=== PATIENT | male | born 1990 | race Hispanic/Latino ===

== ENCOUNTER 2020-08-05 07:54 | Emergency (ER) | payer OTHER ==
--- NOTE | 2020-08-06 07:06 | RAD ---
XR Chest 1 View Portable HISTORY: Cough COMPARISON: None FINDINGS: The heart size normal. The lungs are expanded with a focal density in the right infrahilar lung. Recommend repeating the exam after a course of antibiotics to exclude underlying mass..
== END 2020-08-05 08:40 | disposition left against medical advice (07) ==
LOC: MADERS 07:54
DX: R11.2 Nausea with vomiting, unspecified (principal)
CPT/HCPCS: 71045

== ENCOUNTER 2020-08-11 00:36 | Emergency (ER) | payer OTHER ==
[2020-08-11] MEDS ORDERED: Morphine 2 MG/ML SYRINGE ONE (01:07)
[2020-08-11] MEDS ORDERED: Ketorolac Tromethamine 30 MG/ML VIAL ONE (01:07)
[2020-08-11 01:25] LABS: #Basophils 0.1 thou/uL (0.0-0.2); #Eosinphils 0.2 thou/uL (0.0-0.7); #Lymphocytes 3.7 thou/uL (1.20-3.40); #Monocytes 0.5 thou/uL (0.11-0.59); #Neutrophils 4.8 thou/uL (1.40-6.50); %Basophils 1.5 % (0.0-1.0); %Eosinophils 1.8 % (0.0-10.0); %Lymphocytes 39.5 % (21.0-51.0); %Monocytes 5.7 % (0.0-10.0); %Neutrophils 51.6 % (42.0-75.0); Hemoglobin 16.2 g/dL (14.0-18.0); Mean Corpuscular HGB CONC 34.7 g/dL (32.0-36.0); Mean Corpuscular Hemoglobin 31.6 pg (27.0-31.0); Mean Corpuscular Volume 90.9 fL (78.0-98.0); Mean Platelet Volume 6.4 fL (7.4-10.4); Platelet Count 286 thou/uL (130-400); RBC Distribution Width 11.2 % (11.5-14.5); Red Blood Cell (RBC) Count 5.13 mill/uL (4.70-6.10); White Blood Cell (WBC) Count 9.3 thou/uL (4.8-10.8)
[2020-08-11] MEDS ORDERED: Ketamine 50 MG/ML (10ML VIAL) ONE (01:31)
[2020-08-11 01:36] LABS: ALT (SGPT) 33 U/L (8-55); AST (SGOT) 25 U/L (5-34); Albumin 4.3 g/dL (3.5-5.0); Alkaline Phosphatase 65 U/L (40-110); Anion Gap 19 mmol/L (10-20); BUN (Urea Nitrogen) 13 mg/dL (8.9-20.6); Bilirubin, Total 0.6 mg/dL (0.2-1.2); Calc. Creatinine Clearance 0 mL/min (70-130); Calcium 9.2 mg/dL (7.8-10.44); Carbon Dioxide 18 mmol/L (22-29); Chloride 106 mmol/L (98-107); Estimated GFR-MDRD 75; Globulin 3.7 g/dL (2.4-3.5); Glucose 100 mg/dL (70-105); Lipase 62 U/L (8-78); Potassium 3.9 mmol/L (3.5-5.1); Sodium 139 mmol/L (136-145)
[2020-08-11] MEDS ORDERED: Fentanyl 100 MCG/2 ML VIAL ONE (01:44)
[2020-08-11] MEDS ORDERED: Lorazepam 2 MG/ML VIAL ONE (01:52)
[2020-08-11 02:01] LABS: Cardiac Risk 7.5 (Less than 4.5); Cholesterol 261 mg/dl (< 200 Desired); HDL Cholesterol 35 mg/dL (>60 Neg Risk); Triglycerides 856 mg/dL (Less than 150)
[2020-08-11 02:09] LABS: LDL Cholesterol, Calculated 55 mg/dL
[2020-08-11] MEDS ORDERED: Morphine 4 MG/ML VIAL ONE (03:03)
[2020-08-11] MEDS ORDERED: Prochlorperazine 10 MG/2 ML VIAL ONE (03:04)
[2020-08-11] MEDS ORDERED: Sodium Chloride 0.9% 1,000 ML BAG ONE (08:46)
[2020-08-11] MEDS ORDERED: Iopamidol 370 76% 100 ML VIAL ONE (10:52)
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
== END 2020-08-11 05:12 ==
LOC: MADERS 00:36
DX: K85.90 Acute pancreatitis without necrosis or infection, unspecified (principal); E78.1 Pure hyperglyceridemia; R91.1 Solitary pulmonary nodule; M54.5 Low back pain; W19.XXXA Unspecified fall, initial encounter
CPT/HCPCS: 70450; 71260; 72125; 74177; 80053; 80061; 83605; 83690; 85025; 96361; 96365; 96375; 96376; J0780; J1885; J2060; J2270; J3010; J7050; Q9967

== ENCOUNTER 2020-09-18 08:32 | Outpatient (CLI) | payer OTHER ==
--- NOTE | 2020-09-18 10:47 | CT ---
CT CHEST WITH CONTRAST: HISTORY: Abnormal chest x-ray. COMPARISON: CT chest, abdomen, and pelvis 08/11/2020. FINDINGS: The band-like peripheral opacities in the lungs are relatively similar in size and contain small foci of calcifications. No significant interval growth. Small calcified nodule on the right middle lobe adjacent to the fissure. The lingular and bilateral lower lobe nodules are all similar. No pneumothorax. NO effusion. No si gnificant pericardial fluid. Limited evaluation of the upper abdomen is unremarkable. Sternum and manubrium are intact. Thoracic spine is intact. No acute osseous abnormality. IMPRESSION: Similar appearance of the multifocal band-shaped lung masses do contain inspissated calcifications. These likely reflect areas of round atelectasis and scar from inspissated debris from either prior gr anulomatous infections process or aspiration. Underlying metastatic disease from osteosarcoma or cancer is felt less likely. A testicular ultrasound may be beneficial. Thyroid metastatic disease i s also felt less likely, although given patient's young age and potential benefit, a nonemergent thyr oid ultrasound may also be beneficial. Pulmonary calcifications from calcium/phosphatase metabolic a bnormality is also within the differential. POS: [facility]
[2020-09-18] MEDS ORDERED: Iopamidol 370 76% 100 ML VIAL ONE (13:14)
== END 2020-09-18 08:33 | disposition home or self-care (01) ==
LOC: MADULT 08:32 → MADCT 08:33
DX: R91.8 Other nonspecific abnormal finding of lung field (principal)
CPT/HCPCS: 71260; Q9967